=== PATIENT | male | born 1950 ===

== ENCOUNTER 2019-10-08 08:36 | Day surgery (SDC) | payer MEDICARE ==
[~2019-10-08] VITALS: Ht 182.9 cm; Wt 102.7 kg
[~2019-10-08 08:36] MED LIST: ALLERGY SHOT; CITA20 PO; CYCL10 PO; FLUNISOLIDE25 ML NS; Flovent Disku100 MCG; GABA300 PO; GUAI600T33 PO; HYDACE10B PO; HYDACE5 PO; Keflex500 MG PO; LATA.005SO RIGHTEYE; NAPR500; OXYC10ER; OXYC10TA19 PO; Omeprazole20 M1; PRAVASTATIN SOD10 MG PO; Percocet 5-3251 EACH PO; RXHYDACE PO; SYMBICORT 160-4.6 GM INH; TIMO.5OPSO RIGHTEYE; TRAM50; TRAM50 PO
== END 2019-10-08 11:38 | disposition home or self-care (01) ==
LOC: ORSCSDS 08:36
PROVIDERS: Otolaryngology
PROC: 09BM0ZZ Excision of Nasal Septum, Open Approach (ICD-10-PCS; principal; 2019-10-08 10:00)
PROC: 09TL0ZZ Resection of Nasal Turbinate, Open Approach (ICD-10-PCS; principal; 2019-10-08 10:00)
DX: J34.2 Deviated nasal septum (principal); J34.3 Hypertrophy of nasal turbinates; J44.9 Chronic obstructive pulmonary disease, unspecified; G47.33 Obstructive sleep apnea (adult) (pediatric); K21.9 Gastro-esophageal reflux disease without esophagitis; Z79.899 Other long term (current) drug therapy
CPT/HCPCS: J1100; J2250; J2405; J2704; J2710; J3010; J7120

== ENCOUNTER 2021-12-09 12:58 | Day surgery (SDC) | payer MEDICARE ==
[~2021-12-09] VITALS: Ht 182.9 cm; Wt 103.3 kg
[2021-12-09] MEDS ORDERED: Crestor20 MG (14:01)
== END 2021-12-09 16:04 | disposition home or self-care (01) ==
LOC: ORSCSDS 12:58
PROVIDERS: Internal Medicine Gastroenterology
PROC: 0DB78ZX Excision of Stomach, Pylorus, Via Natural or Artificial Opening Endoscopic, Diagnostic (ICD-10-PCS; principal; 2021-12-09 14:15)
PROC: 0DBK8ZX Excision of Ascending Colon, Via Natural or Artificial Opening Endoscopic, Diagnostic (ICD-10-PCS; principal; 2021-12-09 14:15)
PROC: 0DB58ZX Excision of Esophagus, Via Natural or Artificial Opening Endoscopic, Diagnostic (ICD-10-PCS; principal; 2021-12-09 14:15)
PROC: 0DBM8ZX Excision of Descending Colon, Via Natural or Artificial Opening Endoscopic, Diagnostic (ICD-10-PCS; principal; 2021-12-09 14:15)
PROC: 0DBP8ZX Excision of Rectum, Via Natural or Artificial Opening Endoscopic, Diagnostic (ICD-10-PCS; principal; 2021-12-09 14:15)
DX: Z12.11 Encounter for screening for malignant neoplasm of colon (principal); Z86.010 Personal history of colon polyps; K21.9 Gastro-esophageal reflux disease without esophagitis; D12.8 Benign neoplasm of rectum; D12.2 Benign neoplasm of ascending colon; D12.4 Benign neoplasm of descending colon; K22.70 Barrett's esophagus without dysplasia; K29.70 Gastritis, unspecified, without bleeding; K44.9 Diaphragmatic hernia without obstruction or gangrene; G47.33 Obstructive sleep apnea (adult) (pediatric); Z79.899 Other long term (current) drug therapy
CPT/HCPCS: 88305; 88342; J2704; J7120

== ENCOUNTER → 2024-09-03 | Outpatient (CLI) | payer MEDICARE | END | disposition home or self-care (01) | LOC: LAB SHORT 10:07 → LAB 10:07 | DX: E78.5 Hyperlipidemia, unspecified (principal); R73.01 Impaired fasting glucose ==